=== PATIENT | female | born 1985 | race Caucasian/White ===

== ENCOUNTER 2017-03-01 12:42 | Emergency (ER) | payer OTHER ==
[2017-03-01 13:00] VITALS: BP 121/72
[2017-03-01] MEDS ORDERED: Sodium Chloride 0.9% 10 ML Syringe FLUSH PRN (13:23)
[2017-03-01] MEDS ORDERED: Lactated Ringers 1,000 ML IV SCH (13:30)
--- NOTE | 2017-03-01 14:38 | EDM.PDOC ---
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 She is G2 AB1 at 18 weeks gestation. Her LNMP was October 24. She has been working with her dad christy. She has been riding in the [employer] [place]. She believes she has overdone it. It has been hot and she is in an air conditioned cab. She has been drinking water. She has no dysuria, nausea, vomiting, diarrhea, abdominal pain, chest pain, shortness of breath, fever or chills. She has no discharge or bleeding. With her 1st she had a spontaneous at 10 weeks. She also tells me that she has a mild cough and there has been some dark blood in her sputum. She has some tightness in her chest at times. Onset: Gradual Duration: Day(s): (Last night) Location: Reports: Pelvis Quality: Reports: Other (Cramping) Severity: Moderate Improves with: Reports: None Worsens with: Reports: None Context: Reports: Activity (She was haying) Associated Symptoms: Reports: No Other Symptoms Pelvic Pain Score (Numeric/FACES): 5 - Related Data Allergies Allergy/AdvReac Type Severity Reaction Status Date / Time amoxicillin Allergy Rash Verified 03/01/17 13:00 cefaclor [From Ceclor] Allergy Rash Verified 03/01/17 13:00 cephalexin Allergy Rash Verified 03/01/17 13:00 clavulanic acid Allergy Rash Verified 03/01/17 13:00 [From Augmentin] Penicillins Allergy Rash Verified 03/01/17 13:00 Sulfa (Sulfonamide Allergy Rash Verified 03/01/17 13:00 Antibiotics) sulfamethoxazole Allergy Rash Verified 03/01/17 13:00 [From Bactrim] trimethoprim [From Bactrim] Allergy Rash Verified 03/01/17 13:00 Home Meds: Home Meds [place]-3/DHA/Epa/Fish Oil [[place] 3 500 Softgel] 1 each PO DAILY 03/01/17 [History ] PNV95/Ferrous Fumarate/FA [ Tablet] 1 each PO DAILY 03/01/17 [History] Past Medical History - Past Surgical History HEENT Surgical History: Reports: Oral Surgery, Tonsillectomy Musculoskeletal Surgical History: Reports: Arthroscopic Knee Social & Family History - Tobacco Use Smoking Status *Q: Never Smoker - Recreational Drug Use Recreational Drug Use: No - Living Situation & Occupation Living situation: Reports: , with Spouse Occupation: Employed ED ROS GENERAL - Review of Systems Review Of Systems: See Below Constitutional: Reports: No Symptoms HEENT: Reports: No Symptoms Respiratory: Reports: Cough, Hemoptysis (Slight) Cardiovascular: Reports: Chest Pain (Tightness) Endocrine: Reports: No Symptoms GI/Abdominal: Reports: No Symptoms : Reports: Other (Pelvic cramping) ED EXAM - Physical Exam Exam: See Below Exam Limited By: No Limitations General Appearance: Alert, No Apparent Distress Ears: Normal External Exam Nose: Normal Inspection Head: Atraumatic, Normocephalic Neck: Normal Inspection Respiratory/Chest: No Respiratory Distress, Lungs Clear, Normal Breath Sounds Cardiovascular: Regular Rate, Rhythm, No Edema, No Murmur GI/Abdominal Exam: Soft, Non-Tender, No Mass, Other (Gravid uterus to just below the umbilicus) Course - Vital Signs Last Recorded V/S: Last Vital Signs Temp 98 F 03/01/17 12:57 Pulse 88 03/01/17 12:57 Resp 16 03/01/17 12:57 BP 121/72 03/01/17 12:57 Pulse Ox 98 03/01/17 12:57 - Orders/Labs/Meds Orders: Active Orders 24 hr Category Date Time Status Cardiac Monitoring [RC] . DIRECTED Care 03/01/17 13:23 Active Peripheral IV Care [RC] . DIRECTED Care 03/01/17 13:24 Active Lactated Ringers [Ringers, Lactated] 1,000 ml Med 03/01/17 13:30 Active IV .BOLUS Sodium Chloride 0.9% [Saline Flush] Med 03/01/17 13:23 Active 10 ml FLUSH ASDIRECTED PRN Peripheral IV Insertion Adult [OM.PC] Stat Oth 03/01/17 13:23 Ordered Medication Orders Lactated Ringer's (Ringers, Lactated) 1,000 mls @ 500 mls/hr IV .BOLUS KENNEDY Last Admin: 03/01/17 13:34 Dose: 500 mls/hr Sodium Chloride (Saline Flush) 10 ml FLUSH ASDIRECTED PRN PRN Reason: Keep Vein Open Last Admin: 03/01/17 13:34 Dose: 10 ml Labs: Laboratory Tests 03/01/17 03/01/17 03/01/17 Range/Units 13:35 13:38 13:38 WBC 8.47 (3.98-10.04) K/mm3 RBC 4.23 (3.98-5.22) M/mm3 Hgb 13.7 (11.2-15.7) gm/L Hct 39.2 (34.1-44.9) % MCV 92.7 (79.4-94.8) fl MCH 32.4 H (25.6-32.2) pg MCHC 34.9 (32.2-35.5) g/dl RDW Std Deviation 45.1 (36.4-46.3) fL Plt Count 223 (182-369) K/mm3 MPV 8.8 L (9.4-12.3) fl Neut % (Auto) 73.2 H (34.0-71.1) % Lymph % (Auto) 19.7 (19.3-51.7) % [place] % (Auto) 6.0 (4.7-12.5) % Eos % (Auto) 0.5 L (0.7-5.8) Baso % (Auto) 0.2 (0.1-1.2) % Neut # (Auto) 6.20 H (1.56-6.13) K/mm3 Lymph # (Auto) 1.67 (1.18-3.74) K/mm3 [place] # (Auto) 0.51 H (0.24-0.36) K/mm3 Eos # (Auto) 0.04 (0.04-0.36) K/mm3 Baso # (Auto) 0.02 (0.01-0.08) K/mm3 Sodium 140 (136-145) mEq/L Potassium 3.8 (3.5-5.1) mEq/L Chloride 105 (98-107) mEq/L Carbon Dioxide 28 (21-32) mEq/L Anion Gap 10.8 (5-15) BUN 6 L (7-18) mg/dL Creatinine 0.6 (0.55-1.02) mg/dL Est Cr Clr Drug Dosing TNP Estimated GFR (MDRD) > 60 (>60) mL/min BUN/Creatinine Ratio 10.0 L (14-18) Glucose 78 (74-106) mg/dL Calcium 8.6 (8.5-10.1) mg/dL Total Bilirubin 0.3 (0.2-1.0) mg/dL AST 27 (15-37) U/L ALT 43 (14-59) U/L Alkaline Phosphatase 67 (46-116) U/L Total Protein 7.1 (6.4-8.2) g/dl Albumin 3.3 L (3.4-5.0) g/dl Globulin 3.8 gm/dL Albumin/Globulin Ratio 0.9 L (1-2) Urine Color Yellow (Yellow) Urine Appearance Clear (Clear) Urine pH 7.0 (5.0-8.0) Ur Specific [place] 1.015 (1.005-1.030) Urine Protein Negative (Negative) Urine Glucose (UA) Negative (Negative) Urine Ketones Negative (Negative) Urine Occult Blood Trace-intact H (Negative) Urine Nitrite Negative (Negative) Urine Bilirubin Negative (Negative) Urine Urobilinogen 0.2 (0.2-1.0) Ur Leukocyte Esterase Negative (Negative) Urine RBC 0-5 (0-5) /hpf Urine WBC 0-5 (0-5) /hpf Ur Epithelial Cells 0-5 (0-5) /hpf Urine Bacteria Few (FEW) /hpf Urine Mucus Not seen (FEW) /hpf Meds: Medications Generic Name Dose Route Start Last Admin Trade Name Freq PRN Reason Stop Dose Admin Lactated Ringer's 1,000 mls @ 500 mls/hr 03/01/17 13:30 03/01/17 13:34 Ringers, Lactated IV 500 mls/hr .BOLUS KENNEDY Administration Sodium Chloride 10 ml 03/01/17 13:23 03/01/17 13:34 Saline Flush FLUSH 10 ml ASDIRECTED PRN Administration Keep Vein Open - Re-Assessments/Exams Free Text/Narrative Re-Assessment/Exam: 03/01/17 14:41 I ordered an IV LR 1L bolus, labs, UA and US. 03/01/17 15:03 The patient did not want the CXR done. Her CBC and CMP looks good. Her UA shows no UTI. The US shows the fetus in the cephalic position with a heart rate of 144 and 18 weeks gestation. She says she feels a little better. She has no bleeding or discharge. I will discharge her home. I will send her home with bed rest for a couple of days. Departure - Departure Time of Disposition: 15:05 Disposition: Home, Self-Care 01 Condition: Good Clinical Impression: Pelvic cramping Qualifiers: Weeks of gestation: 18 weeks Qualified Code(s): Z3A.18 - 18 weeks gestation of - Discharge Information Referrals: PCP,None [Primary Care Provider] - Forms: ED Department Discharge, ED Return to Work/School Form Additional Instructions: Drink plenty of fluids. Rest for the next couple of days. Call your OB doctor and let her know what is going on. Please return if you have more cramping or if you have drainage or bleeding. - My Orders Last 24 Hours: My Active Orders 03/01/17 13:23 Cardiac Monitoring [RC] . DIRECTED Sodium Chloride 0.9% [Saline Flush] 10 ml FLUSH ASDIRECTED PRN Peripheral IV Insertion Adult [OM.PC] Stat 03/01/17 13:24 Peripheral IV Care [RC] . DIRECTED 03/01/17 13:30 Lactated Ringers [Ringers, Lactated] 1,000 ml IV .BOLUS - Assessment/Plan Last 24 Hours: My Active Orders 03/01/17 13:23 Cardiac Monitoring [RC] . DIRECTED Sodium Chloride 0.9% [Saline Flush] 10 ml FLUSH ASDIRECTED PRN Peripheral IV Insertion Adult [OM.PC] Stat 03/01/17 13:24 Peripheral IV Care [RC] . DIRECTED 03/01/17 13:30 Lactated Ringers [Ringers, Lactated] 1,000 ml IV .BOLUS
--- NOTE | 2017-03-01 14:49 | US ---
Limited obstetrical ultrasound: Multiple real-time images were obtained transabdominally. Comparison: No previous obstetrical ultrasound. Dates: Current ultrasound: LIZZY 08/02/17, gestational age 18 weeks 0 days Technologist's note: Strong contraction noted throughout exam presentation: Cephalic Placenta: Fundal with no findings of placenta previa Amniotic fluid: JAKE 12.80 cm Maternal adnexa: Within normal limits Measurements: BPD: 3.96 cm - 18 weeks 0 days Head circumference: 14.77 cm - 17 weeks 6 days Abdominal circumference: 12.81 cm - 18 weeks 3 days Femur length: 2.53 cm - 17 weeks 5 days Estimated weight: 220 g (8 ounces), estimated weight at the 55th percentile Heart rate: 141 BPM Cervical length: 3.4 cm Impression: 1. Technologist note stating strong contraction occurred throughout the exam. 2. Fetus is cephalic in presentation. Dates as noted above. 3. No complicating process is identified by ultrasound exam. Diagnostic code #1
== END 2017-03-01 15:15 | disposition home or self-care (01) ==
LOC: JD.ED 12:42
DX: O99.89 Other specified diseases and conditions complicating pregnancy, childbirth and the puerperium (principal); R10.2 Pelvic and perineal pain; Z98.890 Other specified postprocedural states; Z88.1 Allergy status to other antibiotic agents; Z88.2 Allergy status to sulfonamides; Z88.0 Allergy status to penicillin; Z3A.18 18 weeks gestation of pregnancy
CPT/HCPCS: 36415; 76815; 80053; 81001; 85025; 96360; 96361; 99284; J7050; J7120; 99283

== ENCOUNTER 2018-09-21 13:55 | Emergency (ER) | payer OTHER ==
--- NOTE | 2018-09-21 15:55 | EDM.PDOC ---
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 She notes that she had a baby 11 days ago; this was a normal vaginal delivery. The patient noticed that the discharge was minimal to start with and has become foul-smelling since yesterday. She notes pelvic/cervix pain that is sharp in nature, like someone is stabbing her. She rates this at a 3/ 10. Her OB was a Dr. Nikkie Alvarez out of [place] in [place], [place]. She was consulted on the the discharge by the patient today and the doctor told her to go to the walk-in clinic, but the the [facility] deferred her to us. She denies any fever/chills, nausea/vomiting/diarrhea, chest pain or shortness of breath. The patient further denies any perfumed lotions or bath products, and denies any kind of sexual activity. She notes the discharge to be pink and malodorous in nature. Pelvic Pain Score (Numeric/FACES): 3 - Related Data Allergies Allergy/AdvReac Type Severity Reaction Status Date / Time amoxicillin Allergy Rash Verified 03/01/17 13:00 cefaclor [From Ceclor] Allergy Rash Verified 03/01/17 13:00 cephalexin Allergy Rash Verified 03/01/17 13:00 clavulanic acid Allergy Rash Verified 03/01/17 13:00 [From Augmentin] Penicillins Allergy Rash Verified 03/01/17 13:00 Sulfa (Sulfonamide Allergy Rash Verified 03/01/17 13:00 Antibiotics) sulfamethoxazole Allergy Rash Verified 03/01/17 13:00 [From Bactrim] trimethoprim [From Bactrim] Allergy Rash Verified 03/01/17 13:00 Home Meds: Home Meds [place]-3/DHA/Epa/Fish Oil [[place] 3 500 Softgel] 1 each PO DAILY 03/01/17 [History ] PNV95/Ferrous Fumarate/FA [ Tablet] 1 each PO DAILY 03/01/17 [History] Clindamycin HCl 300 mg PO BID #14 capsule 09/21/18 [Rx] Past Medical History 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 (See Below) 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 WEB SYSTEMS DEVELOPER History: vaginal delivery-Sep 10 2018 - Past Surgical History HEENT Surgical History: Reports: Oral Surgery, Tonsillectomy Musculoskeletal Surgical History: Reports: Arthroscopic Knee Social & Family History - Tobacco Use Smoking Status *Q: Never Smoker - Caffeine Use Caffeine Use: Reports: Soda, Tea - Recreational Drug Use Recreational Drug Use: No - Living Situation & Occupation Living situation: Reports: , with Spouse Occupation: Employed ED ROS GENERAL - Review of Systems Review Of Systems: See Below Constitutional: Denies: Fever, Chills, Weakness HEENT: Reports: No Symptoms Respiratory: Reports: No Symptoms Cardiovascular: Reports: No Symptoms Endocrine: Reports: No Symptoms GI/Abdominal: Reports: No Symptoms : Reports: Discharge (malodorous and pink in color), Pain (pelvic/cervix pain) . Denies: Dysuria, Flank Pain, Frequency, Hematuria Musculoskeletal: Reports: No Symptoms Skin: Reports: No Symptoms Neurological: Reports: No Symptoms Psychiatric: Reports: No Symptoms Hematologic/Lymphatic: Reports: No Symptoms Immunologic: Reports: No Symptoms ED EXAM, RENAL/ - Physical Exam Exam: See Below Exam Limited By: No Limitations General Appearance: Alert, WD/WN, No Apparent Distress (patient is tearful upon initial examination) Eye Exam: Bilateral Eye: EOMI, Normal Inspection, PERRL Ears: Normal External Exam Nose: Normal Inspection Throat/Mouth: Normal Inspection, Normal Oropharynx, No Airway Compromise Head: Atraumatic, Normocephalic Neck: Normal Inspection Respiratory/Chest: No Respiratory Distress, Lungs Clear, Normal Breath Sounds, No Accessory Muscle Use, Chest Non-Tender Cardiovascular: Normal Peripheral Pulses, Regular Rate, Rhythm, No Edema, No Murmur GI/Abdominal: Normal Bowel Sounds, Soft, Non-Tender, No Distention, No Mass (Female) Exam: Normal External Exam, Normal Speculum Exam, Uterine Tenderness (midline tenderness to bimanual exam), Vaginal Bleeding (red-brown fluid noted in vaginal vault), Vaginal Discharge (red-brown fluid in vaginal vault). No: Cervical Discharge Extremities: Normal Inspection, Normal Capillary Refill Neurological: Alert, Oriented, Normal Cognition, No Motor/Sensory Deficits Psychiatric: Normal Affect, Normal Mood, Tearful (pt states this is normal for her after the of her child, she is not bothered by this and has apologized for being emotional) Skin Exam: Warm, Dry, Intact, Normal Color, No Rash Course - Vital Signs Last Recorded V/S: Last Vital Signs Temp 98.0 F 09/21/18 15:55 Pulse 83 09/21/18 15:55 Resp 18 09/21/18 15:55 BP 118/70 09/21/18 15:55 Pulse Ox 98 09/21/18 15:55 - Orders/Labs/Meds Labs: Laboratory Tests 09/21/18 Range/Units 14:35 Urine Color Yellow (Yellow) Urine Appearance Cloudy H (Clear) Urine pH 5.5 (5.0-8.0) Ur Specific [place] > or = 1.030 (1.005-1.030) Urine Protein 1+ H (Negative) Urine Glucose (UA) Negative (Negative) Urine Ketones Negative (Negative) Urine Occult Blood 3+ H (Negative) Urine Nitrite Negative (Negative) Urine Bilirubin Negative (Negative) Urine Urobilinogen 0.2 (0.2-1.0) Ur Leukocyte Esterase Trace H (Negative) Urine RBC >100 H (0-5) /hpf Urine WBC 5-10 H (0-5) /hpf Ur Epithelial Cells 0-5 (0-5) /hpf Urine Bacteria Few (FEW) /hpf Urine Mucus Few (FEW) /hpf - Re-Assessments/Exams Free Text/Narrative Re-Assessment/Exam: 09/21/18 16:28 Pt presents to the ED for the evaluation of malodorous discharge. Upon speculum exam, the discharge was malodorous. Wet prep was obtained and the patient will be sent home with Clindamycin 300mg BID for 7 days for suspected BV. She will be notified if she needs any medication change. Departure - Departure Time of Disposition: 15:50 Disposition: Home, Self-Care 01 Condition: Fair Clinical Impression: Vaginal discharge - Discharge Information *PRESCRIPTION DRUG MONITORING PROGRAM REVIEWED*: No *COPY OF PRESCRIPTION DRUG MONITORING REPORT IN PATIENT [place]: No Prescriptions: Clindamycin HCl 300 mg PO BID #14 capsule Instructions: Pelvic Pain, Female Referrals: PCP,None [Primary Care Provider] - Forms: ED Department Discharge Additional Instructions: You have been evaluated in the ED for your vaginal discharge. You have been provided a script for Clindamycin 300 mg BID for 7 days. This may give your baby diarrhea. This is safe to use in . You will be notified if your culture obtained today warrants any change in medications. Please return to the ED if your symptoms change or worsen.
[2018-09-21 16:24] VITALS: BP 118/70
== END 2018-09-21 16:18 | disposition home or self-care (01) ==
LOC: JD.ED 13:55 → SUPCPDRO 13:55 → JD.ED 16:18
DX: O90.89 Other complications of the puerperium, not elsewhere classified (principal); N89.8 Other specified noninflammatory disorders of vagina; Z88.1 Allergy status to other antibiotic agents; Z88.8 Allergy status to other drugs, medicaments and biological substances; Z88.2 Allergy status to sulfonamides; Z88.0 Allergy status to penicillin
CPT/HCPCS: 81001; 87210; 87808; 99283

== ENCOUNTER 2020-10-06 19:43 | Emergency (ER) | payer BC, OTHER ==
[2020-10-06 19:54] VITALS: BP 100/57; PULSE 85
--- NOTE | 2020-10-06 20:30 | EDM.PDOC ---
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 She was carrying some laundry down steps, stubbed her R toe and fell forward not suffering any other acute injury. However shortly after this she started feeling lightheaded, dizzy, nauseated and felt like she was about to pass out. This persisted for about 10 to 15 minutes before she started feeling more back to normal. No chest or abd pain at this time. No vaginal bleeding or spotting. She is 6 to 7 wks . Had a "normal US at the clinic this past AM that showed normal heart activity". She does not feel nauseated at this time, just a bit tired. She has no known underlying health problems. Right Toe-[place] Pain Score (Numeric/FACES): 2 - Related Data Allergies Allergy/AdvReac Type Severity Reaction Status Date / Time amoxicillin Allergy Rash Verified 03/01/17 13:00 cefaclor [From Ceclor] Allergy Rash Verified 03/01/17 13:00 cephalexin Allergy Rash Verified 03/01/17 13:00 clavulanic acid Allergy Rash Verified 03/01/17 13:00 [From Augmentin] Penicillins Allergy Rash Verified 03/01/17 13:00 Sulfa (Sulfonamide Allergy Rash Verified 03/01/17 13:00 Antibiotics) sulfamethoxazole Allergy Rash Verified 03/01/17 13:00 [From Bactrim] trimethoprim [From Bactrim] Allergy Rash Verified 03/01/17 13:00 Home Meds: Home Meds Pnv No.95/Ferrous Fum/Folic AC [ Tablet] 1 each PO DAILY 03/01/17 [History] Progesterone, Micronized [Progesterone] 200 mg PO DAILY 10/06/20 [History] Past Medical History 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 (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 Below) 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 TRAM DRIVER History: vaginal delivery-Sep 10 2018 - Past Surgical History HEENT Surgical History: Reports: Oral Surgery, Tonsillectomy Musculoskeletal Surgical History: Reports: Arthroscopic Knee Other Musculoskeletal Surgeries/Procedures:: bilateral knee Social & Family History - Tobacco Use Tobacco Use Status *Q: Never Tobacco User - Caffeine Use Caffeine Use: Reports: Coffee, Soda - Recreational Drug Use Recreational Drug Use: No - Living Situation & Occupation Living situation: Reports: , with Spouse Occupation: Employed ED ROS GENERAL - Review of Systems Review Of Systems: See Below Constitutional: Reports: Diaphoresis (gone). Denies: Fever, Chills HEENT: Reports: No Symptoms Respiratory: Denies: Shortness of Breath Cardiovascular: Denies: Chest Pain GI/Abdominal: Reports: Diarrhea (had 1 episode of diarrhea during all of this), Nausea. Denies: Abdominal Pain Musculoskeletal: Denies: Neck Pain, Shoulder Pain, Back Pain Skin: Denies: Bruising Neurological: Reports: Dizziness (gone). Denies: Trouble Speaking, Difficulty Walking ED EXAM - Physical Exam Exam: See Below General Appearance: Alert, No Apparent Distress Eye Exam: Bilateral Eye: PERRL Head: Atraumatic Neck: Supple Respiratory/Chest: No Respiratory Distress, Lungs Clear, Normal Breath Sounds Cardiovascular: Regular Rate, Rhythm GI/Abdominal Exam: Soft, Non-Tender. No: Guarding Extremities: Normal Inspection, Normal Range of Motion, Other (slight redness, very mild tenderness R great toe, no visual deformity) Neurological: Alert, Oriented, No Motor/Sensory Deficits Skin Exam: Warm, Dry, Normal Color Course - Vital Signs Last Recorded V/S: Last Vital Signs Temp 97.2 F 10/06/20 19:53 Pulse 85 10/06/20 19:53 Resp 20 10/06/20 19:53 BP 100/57 L 10/06/20 19:53 Pulse Ox 100 10/06/20 19:53 - Re-Assessments/Exams Free Text/Narrative Re-Assessment/Exam: 10/06/20 20:40 Pt had not been ill in any way prior to the fall. She now feels back to normal. I could do labs but the expectation is that they would be normal. She is not anemic at this time. She has very good skin color, nl cap refill. She had a nl OB US this morning. She is drinking water. Discharge instr. as documented. Departure - Departure Time of Disposition: 20:24 Disposition: Home, Self-Care 01 Clinical Impression: First trimester , Vasovagal near syncope - Discharge Information Referrals: Helen Hobson PA-C [Primary Care Provider] - Forms: ED Department Discharge Additional Instructions: Rest. Drink plenty of water this evening and tomorrow to catch up on hydration. If you do have a dizzy spell again lie down or get your head down as discussed so you don't pass out. Follow up clinic as needed. Return to ED as needed if symptoms worsening in any way. Sepsis Event Note (ED) - Evaluation Sepsis Screening Result: No Definite Risk - Focused Exam Vital Signs: Vital Signs Temp Pulse Resp BP Pulse Ox 10/06/20 19:53 97.2 F 85 20 100/57 L 100
== END 2020-10-06 20:45 | disposition home or self-care (01) ==
LOC: JD.ED 19:43 → SUPCPDRO 19:43 → JD.ED 20:45
DX: O99.891 Other specified diseases and conditions complicating pregnancy (principal); R55 Syncope and collapse; Z88.1 Allergy status to other antibiotic agents; Z88.0 Allergy status to penicillin; Z88.2 Allergy status to sulfonamides; Z3A.01 Less than 8 weeks gestation of pregnancy
CPT/HCPCS: 99282; 99283